=== PATIENT | male | born 1995 | race Two or more races ===

== ENCOUNTER 2019-08-30 13:07 | Emergency (ER) | payer OTHER, MEDICAID ==
[~2019-08-30] VITALS: Ht 185.4 cm; Wt 79.4 kg
[2019-08-30] MEDS ORDERED: SODIUM CHLORIDE 0.9% 1,000 ML IV ONE (13:52)
[2019-08-30] MEDS ORDERED: PANTOPRAZOLE 40 MG/10 ML VIAL INJ IV ONE (14:00)
[2019-08-30] MEDS ORDERED: ONDANSETRON HCL 4 MG/2 ML VIAL IV ONE (14:00)
[2019-08-30 14:31] LABS: Basophils # (auto) 0.1 10 ^3/uL (0-0.2); Basophils % (auto) 0.5 % (0.0-2.0); Eosinophils # (auto) 0.1 10 ^3/uL (0-0.8); Eosinophils % (auto) 0.7 % (0.0-7.0); Hematocrit 48.5 % (41.0-53.0); Hemoglobin 16.8 g/dL (13.5-17.5); Lymphocytes # (auto) 2.9 10 ^3/uL (0.4-5.4); Lymphocytes % (auto) 22.1 % (10.0-50.0); Mean Corpuscular Hemoglobin 30.4 pg (28.0-32.0); Mean Corpuscular Hgb Conc. 34.7 g/dL (32.0-36.0); Mean Corpuscular Volume 87.4 fL (80.0-100.0); Monocytes # (auto) 0.8 10 ^3/uL (0-1.3); Monocytes % (auto) 6.1 % (0.0-12.0); Neutrophils # (auto) 9.3 10 ^3/uL (1.6-8.6); Neutrophils % (auto) 70.6 % (37.0-80.0); Nucleated Red Blood Cells % 0.2 %; Platelet Count (auto) 298 10^3/uL (140-450); Red Blood Cells 5.54 10^6/uL (4.5-5.90); Red Cell Distribution Width 12.4 % (11.8-14.3); White Blood Cell 13.1 10^3/uL (4.4-10.8)
[2019-08-30 14:53] LABS: Albumin 4.6 g/dL (3.4-5.0); Calcium 9.3 mg/dL (8.5-10.1)
[2019-08-30 14:57] LABS: BUN/Creatinine Ratio 17.8; Total Protein 7.9 g/dL (6.4-8.2)
[2019-08-30 17:00] VITALS: BP 139/86
== END 2019-08-30 17:01 | disposition home or self-care (01) ==
LOC: ER 13:07
DX: K52.9 Noninfective gastroenteritis and colitis, unspecified (principal); F10.239 Alcohol dependence with withdrawal, unspecified; Y90.9 Presence of alcohol in blood, level not specified
CPT/HCPCS: 36415; 80053; 85025; 96360; 99283; C9113; J2405; J7030

== ENCOUNTER 2023-06-28 12:43 | Emergency (ER) | payer MEDICAID, OTHER ==
[~2023-06-28] VITALS: Ht 185.4 cm; Wt 82.8 kg
[2023-06-28 13:28] VITALS: BP 133/79; PULSE 76; RESP 18; O2SAT 100
[2023-06-28] MEDS: SODIUM CHLORIDE 0.9% 1,000 ML IV ONE (16:00)
[2023-06-28] MEDS: LORazepam 0.5 MG TAB PO ONE (16:00)
== END 2023-06-28 17:40 | disposition left against medical advice (07) ==
LOC: ER 12:43
DX: G45.9 Transient cerebral ischemic attack, unspecified (principal); R51.9 Headache, unspecified
CPT/HCPCS: 70450